=== PATIENT | male | born 1935 | race African-American/Black ===

== ENCOUNTER 2018-02-24 14:54 | Inpatient (IN) | payer OTHER ==
[~2018-02-24] VITALS: Ht 182.9 cm; Wt 76.0 kg
[2018-02-24 15:20] VITALS: Ht 182.9 cm; Wt 76.0 kg
[2018-02-24 16:42] LABS: UA SPECIFIC GRAVITY 1.025 (1.005-1.035); microscopic required? YES; urine erythrocyte 3+ (NEGATIVE)
[2018-02-24 16:50] LABS: PLATELET COUNT 242 x10^3mcL (130-400); RED CELL DISTRIBUTION WIDTH 13.7 % (11.5-14.5)
[2018-02-24 17:03] LABS: CALCIUM 8.6 mg/dL (8.5-10.1); CARBON DIOXIDE 30.7 mmol/L (21-32); CHLORIDE SERUM 108 mmol/L (98-107); CREATININE SERUM 1.8 mg/dL (0.7-1.3); GLUCOSE SERUM 118 mg/dL (74-106); POTASSIUM SERUM 4.3 mmol/L (3.5-5.1); SODIUM SERUM 146 mmol/L (136-145)
[2018-02-24 17:08] LABS: ALBUMIN 3.2 g/dL (3.4-5.0); ALKALINE PHOSPHATASE 82 U/L (46-116); ALT/SGPT 16 U/L (16-63); AST/SGOT 19 U/L (15-37); BILIRUBIN TOTAL 1.63 mg/dL (0.20-1.00); MAGNESIUM 1.7 mg/dL (1.8-2.4); TOTAL PROTEIN, SERUM 6.9 g/dL (6.4-8.2)
[2018-02-24 19:33] LABS: BAND NEUTROPHIL 3 % (0-10); MONOCYTE 15 % (0-7); SEGMENTED NEUTROPHILS 77 % (37-75); rbc morphology (normal/abnorm) ABNORMAL (NORMAL)
[2018-02-24 19:48] VITALS: BP 142/67
[2018-02-24 19:57] LABS: T3 TOTAL 0.64 ng/mL
[2018-02-24 19:58] LABS: FREE T4 0.88 ng/dL (0.76-1.46)
[2018-02-24 19:59] LABS: FREE THYROXINE INDEX 1.7 ug/dL (1.4-4.5); T4(THYROXINE) 4.6 ug/dL (4.7-13.3)
[2018-02-24 22:15] VITALS: BP 143/81
[2018-02-25 05:21] VITALS: BP 110/55
[2018-02-25 06:15] LABS: CHLORIDE SERUM 107 mmol/L (98-107); CREATININE SERUM 1.7 mg/dL (0.7-1.3); GLUCOSE SERUM 111 mg/dL (74-106); POTASSIUM SERUM 3.9 mmol/L (3.5-5.1); SODIUM SERUM 134 mmol/L (136-145)
[2018-02-25 06:48] LABS: PLATELET COUNT 188 x10^3mcL (130-400); RED CELL DISTRIBUTION WIDTH 13.7 % (11.5-14.5)
[2018-02-25 09:58] VITALS: BP 98/40
[2018-02-25 10:33] LABS: BAND NEUTROPHIL 8 % (0-10); BASOPHIL 0 % (0-2); MONOCYTE 9 % (0-7); SEGMENTED NEUTROPHILS 79 % (37-75)
[2018-02-25 10:35] LABS: PLATELET MORPHOLOGY LARGE PLATELET SEEN; rbc morphology (normal/abnorm) ABNORMAL (NORMAL); target cell (codocyte) 1+; tear drop cell (dacryocyte) 1+
[2018-02-25 18:39] VITALS: BP 121/57
[2018-02-25 20:50] VITALS: BP 117/47
[2018-02-26 05:44] VITALS: BP 138/62
[2018-02-26 05:53] LABS: PLATELET COUNT 184 x10^3mcL (130-400)
[2018-02-26 06:03] LABS: CALCIUM 8.3 mg/dL (8.5-10.1); CARBON DIOXIDE 25.2 mmol/L (21-32); CHLORIDE SERUM 108 mmol/L (98-107); CREATININE SERUM 1.7 mg/dL (0.7-1.3); GLUCOSE SERUM 94 mg/dL (74-106); MAGNESIUM 1.7 mg/dL (1.8-2.4); PHOSPHOROUS 2.8 mg/dL (2.5-4.9); POTASSIUM SERUM 4.3 mmol/L (3.5-5.1); SODIUM SERUM 141 mmol/L (136-145)
[2018-02-26 09:23] VITALS: BP 128/65; BP 154/80
[2018-02-26 12:36] LABS: BAND NEUTROPHIL 5 % (0-10); MONOCYTE 7 % (0-7); SEGMENTED NEUTROPHILS 77 % (37-75)
[2018-02-26 12:37] LABS: PLATELET MORPHOLOGY PLATELETS NORMAL; rbc morphology (normal/abnorm) ABNORMAL (NORMAL); target cell (codocyte) 1+
[2018-02-26 13:03] VITALS: BP 149/77
[2018-02-26 16:55] VITALS: BP 170/85
[2018-02-26] MEDS ORDERED: CARVEDILOL12.5 M1 PO (17:16)
[2018-02-26] MEDS ORDERED: COZAAR100 MG PO (17:17)
[2018-02-26] MEDS ORDERED: ARICEPT10 MG PO (17:18)
[2018-02-26 19:21] VITALS: BP 155/74
[2018-02-26 20:52] VITALS: BP 142/75
[2018-02-27 04:30] VITALS: BP 124/58
[2018-02-27 07:34] LABS: CALCIUM 8.7 mg/dL (8.5-10.1); CARBON DIOXIDE 26.3 mmol/L (21-32); CHLORIDE SERUM 109 mmol/L (98-107); CREATININE SERUM 1.6 mg/dL (0.7-1.3); GLUCOSE SERUM 98 mg/dL (74-106); POTASSIUM SERUM 4.5 mmol/L (3.5-5.1); SODIUM SERUM 142 mmol/L (136-145)
[2018-02-27 09:59] VITALS: BP 178/82
[2018-02-27 10:05] LABS: BASOPHIL % 0.1 % (0-2); PLATELET COUNT 188 x10^3mcL (130-400)
[2018-02-27 10:09] LABS: RED CELL DISTRIBUTION WIDTH 14.7 % (11.5-14.5)
[2018-02-27 13:29] VITALS: BP 156/63
[2018-02-27 17:45] VITALS: BP 146/68
[2018-02-27 21:00] VITALS: BP 149/62
[2018-02-28 05:35] VITALS: BP 124/61
[2018-02-28 06:11] LABS: BASOPHIL % 0.3 % (0-2); PLATELET COUNT 201 x10^3mcL (130-400)
[2018-02-28 06:25] LABS: CALCIUM 8.8 mg/dL (8.5-10.1); CARBON DIOXIDE 25.1 mmol/L (21-32); CHLORIDE SERUM 110 mmol/L (98-107); CREATININE SERUM 1.5 mg/dL (0.7-1.3); GLUCOSE SERUM 89 mg/dL (74-106); POTASSIUM SERUM 4.6 mmol/L (3.5-5.1); SODIUM SERUM 144 mmol/L (136-145)
[2018-02-28 06:26] LABS: RED CELL DISTRIBUTION WIDTH 14.7 % (11.5-14.5)
[2018-02-28 10:36] VITALS: BP 155/50
[2018-02-28] MEDS ORDERED: ROC1I IV ×2 (16:47→16:49)
[2018-02-28 17:05] VITALS: BP 155/50
== END 2018-02-28 20:55 | DRG 871 ==
LOC: ED 14:54 → MU 17:45 → DU 17:45 → MU 19:24 → DU 02-25 20:49 → MU 02-27 12:57
PROVIDERS: Emergency Medicine; Internal Medicine; ADMIT Family Medicine
DX: A41.51 Sepsis due to Escherichia coli [E. coli] (principal); N17.0 Acute kidney failure with tubular necrosis; N39.0 Urinary tract infection, site not specified; E87.0 Hyperosmolality and hypernatremia; E44.1 Mild protein-calorie malnutrition; N20.0 Calculus of kidney; E83.42 Hypomagnesemia; E83.39 Other disorders of phosphorus metabolism; I10 Essential (primary) hypertension; D63.8 Anemia in other chronic diseases classified elsewhere; Z68.23 Body mass index [BMI] 23.0-23.9, adult; Z85.46 Personal history of malignant neoplasm of prostate
CPT/HCPCS: 84439; 90658; J0696; J1885; J1956; J3475; J7030; J7040; Q0092